=== PATIENT | male | born 1995 | race Caucasian/White ===

== ENCOUNTER 2024-06-17 22:33 | Emergency (ER) | payer SELFPAY ==
[~2024-06-17] VITALS: Ht 175.3 cm; Wt 79.4 kg
[2024-06-17 22:38] VITALS: O2SAT 98
[2024-06-18 00:40] VITALS: BP 100/60; PULSE 121; RESP 12; TEMP 36.89184; O2SAT 100
== END 2024-06-18 00:42 | disposition left against medical advice (07) ==
LOC: ER 22:33
DX: S01.01XA Laceration without foreign body of scalp, initial encounter (principal); S09.90XA Unspecified injury of head, initial encounter; W22.8XXA Striking against or struck by other objects, initial encounter; Y93.89 Activity, other specified; Y92.89 Other specified places as the place of occurrence of the external cause; Y99.8 Other external cause status
CPT/HCPCS: 12002; 99291

== ENCOUNTER 2024-06-18 02:22 | Emergency (ER) | payer SELFPAY ==
[~2024-06-18] VITALS: Ht 172.7 cm; Wt 79.3 kg
[2024-06-18 02:42] VITALS: O2SAT 99
[2024-06-18] MEDS ORDERED: MORPHINE SULFATE 4 MG/ML INJ (FOR IV/IM USE) IV NR (03:00)
[2024-06-18] MEDS: ONDANSETRON HCL 4MG/2ML INJ IV NR (03:02)
[2024-06-18] MEDS: CEFAZOLIN 1000MG PREMIX 50 ML IV NR (03:10)
[2024-06-18] MEDS: ACETAMINOPHEN 1000MG/100ML 100 ML IV NR (03:10)
[2024-06-18 03:15] VITALS: BP 118/70; PULSE 114; RESP 16; TEMP 36.61404; O2SAT 100
[2024-06-18 03:16] LABS: CHLORIDE 106 mEq/L (98-107); POTASSIUM 4.6 mEq/L (3.5-5.1); SODIUM 139 mEq/L (136-145)
[2024-06-18 03:17] LABS: CALCIUM 9.4 mg/dL (8.7-10.4); CARBON DIOXIDE 24 mEq/L (21-32)
[2024-06-18 03:22] LABS: CREATININE 1.2 mg/dL (0.6-1.3); ETHANOL BLOOD 197 mg/dL (<10); GLUCOSE 141 mg/dL (70-105); UREA NITROGEN BLOOD 14 mg/dL (9-23)
[2024-06-18 03:23] LABS: AMMONIA < 17 uMol/L (<32)
[2024-06-18 03:24] LABS: ACETAMINOPHEN < 2 ug/mL (10-30); CREATINE KINASE 161 IU/L (46-171)
[2024-06-18 03:40] LABS: BASOPHILS % 0.2 % (0.0-2.0); HEMATOCRIT. 40.6 % (42.0-52.0); HEMOGLOBIN. 13.2 g/dL (14.0-18.0); LYMPHOCYTES % 8.5 % (20.0-50.0); MEAN CORPUSCULAR HEMOGLOBIN 30.1 pg (28.0-32.0); MEAN CORPUSCULAR HGB CONC 32.4 g/dL (31.0-37.0); MEAN CORPUSCULAR VOLUME 92.8 fL (80.0-94.0); MEAN PLATELET VOLUME 7.6 fl (7.4-10.4); MONOCYTES % 3.6 % (2.0-8.0); NEUTROPHILS % 87.7 % (40.0-76.0); PLATELET 305 x1000/uL (130-400); RED BLOOD CELL COUNT 4.37 mill/uL (4.7-6.1); RED CELL DISTRIBUTION WIDTH 14.4 % (11.6-14.6); WHITE BLOOD COUNT 13.9 x1000/uL (4.5-11.0)
[2024-06-18 03:44] LABS: PROTHROMBIN TIME 11.4 sec (9.6-11.0)
== END 2024-06-18 03:32 | disposition short-term general hospital (02) ==
LOC: ER 02:22
DX: S02.0XXB Fracture of vault of skull, initial encounter for open fracture (principal); S09.90XA Unspecified injury of head, initial encounter; F10.129 Alcohol abuse with intoxication, unspecified; W22.8XXA Striking against or struck by other objects, initial encounter; X58.XXXA Exposure to other specified factors, initial encounter; Y93.89 Activity, other specified; Y92.89 Other specified places as the place of occurrence of the external cause; Y99.8 Other external cause status
CPT/HCPCS: 80048; 80307; 80329; 80320; 82140; 82550; 83690; 85025; 85610; 86850; 86900; 86901; 36415; 96368; 96365; 96375; 99285; J0690; J2405; G0480; J0131